=== PATIENT | female | born 1980 | race African-American/Black ===

== ENCOUNTER 2021-09-11 21:53 | Emergency (ER) | payer OTHER ==
[~2021-09-11] VITALS: Ht 160 cm; Wt 77.1 kg
[2021-09-12] MEDS ORDERED: KETO10TA2 PO (04:11)
== END 2021-09-12 04:50 ==
LOC: ER 21:53
DX: N83.291 Other ovarian cyst, right side (principal); N20.0 Calculus of kidney

== ENCOUNTER 2025-02-23 11:33 | Inpatient (IN) | payer OTHER ==
[~2025-02-23] VITALS: Ht 160 cm; Wt 70.3 kg
[~2025-02-23 11:33] MED LIST: KETO10TA2 PO
[2025-02-23] MEDS ORDERED: 0.9 % SODIUM CHLORIDE 1,000 ML IV ONE (12:00)
[2025-02-23] MEDS ORDERED: TAMSULOSIN HCL 0.4 MG CAP PO ONE (12:00)
[2025-02-23] MEDS ORDERED: FAMOtidine 10 MG/ML (4ML VIAL) IV ONE (12:00)
[2025-02-23] MEDS ORDERED: CEFTRIAXONE SODIUM 1,000 MG VIAL IV ONE (12:00)
[2025-02-23] MEDS ORDERED: KETOROLAC TROMETHAMINE 30 MG VIAL IV ONE (12:00)
[2025-02-23 13:31] LABS: BASO % 0.2 % (0.1-1.2); EOS # 0.00 (0.04-0.54); EOS % 0.0 % (0.7-7.0); LYMPH # 1.15 (1.18-3.74); LYMPH % 8.7 % (19.3-53.1); MEAN PLATELET VOLUME 9.70 fl (9.4-12.4); MONO # 0.66 (0.24-0.82); MONO % 5.0 % (4.7-12.5); NEUT # 11.36 (1.56-6.13); NEUT % 85.9 % (34.0-71.1); RED CELL DISTRIBUTION WIDTH 12.2 % (11.6-14.4)
[2025-02-23 13:42] LABS: ALT/SGPT 24.0 U/L (12-78); AST/SGOT 19.0 U/L (15-37); BILIRUBIN TOTAL 0.62 mg/dL (0.3-1.2); BUN CREA RATIO 10.0 (7.0-25.0); CREATININE SERUM 0.71 mg/dL (0.55-1.02); GFR 89.02; GLOBULINA 4.0 G/DL (2.4-3.5); GLUCOSE FASTING 92.0 mg/dL (65-100); OSMOLALITY SERUM 270.0 MOSM/KG (275-295)
[2025-02-23 13:43] LABS: INR 1.1
[2025-02-23 16:41] LABS: URINE APPEARANCE Cloudy; URINE BILIRRUBIN Negative (NEGATIVE); URINE BLOOD Moderate; URINE COLOR Yellow; URINE GLUCOSE Negative (NEGATIVE); URINE KETONE Trace (NEGATIVE); URINE LEUKOCYTE Moderate; URINE NITRATE Positive; URINE PROTEIN 30 (NEGATIVE); URINE UROBILINOGEN 1.0 E.U./dl
[2025-02-23 16:44] LABS: URINE EPITHELIAL CELLS 10.1 uL (0.0-38.8); URINE RBC 38.7 uL (0.0-20.8); URINE WBC 559.5 uL (0.0-23.2)
[2025-02-23 16:59] LABS: URINE BACTERIA > 9821.5 uL (0.0-1933); URINE CAST 0.43 uL (0.0-1.40)
[2025-02-23] MEDS ORDERED: CEFTRIAXONE SODIUM 1,000 MG VIAL IV SCH (20:19)
[2025-02-23] MEDS ORDERED: ENOXAPARIN SODIUM 40 MG/0.4 ML SYRINGE SUBCUTANEO SCH (20:21)
[2025-02-23] MEDS ORDERED: ACETAMINOPHEN 325 MG TABLET PO PRN (20:30)
[2025-02-23] MEDS ORDERED: MORPHINE SULFATE 2 MG/ML CARTRIDGE IV PRN (20:30)
[2025-02-23] MEDS ORDERED: 0.9 % SODIUM CHLORIDE 1,000 ML IV SCH (20:30)
[2025-02-23] MEDS ORDERED: ONDANSETRON HCL 4 MG in 0.9 % SODIUM CHLORIDE 50 ML IV PRN (20:45)
[2025-02-23 22:31] VITALS: BP 107/73
[2025-02-24 05:39] VITALS: BP 104/64
[2025-02-24 09:10] VITALS: BP 115/60
[2025-02-25 02:02] VITALS: BP 96/65; O2SAT 98
[2025-02-25 08:38] VITALS: BP 102/69; O2SAT 98
[2025-02-25 18:17] VITALS: BP 105/73; O2SAT 99
[2025-02-26 02:11] VITALS: BP 110/71; O2SAT 100
[2025-02-26 08:00] VITALS: BP 96/65; O2SAT 98
== END 2025-02-26 09:40 | disposition home or self-care (01) | DRG 690 ==
LOC: ER 11:33 → MEDJ 20:41
PROVIDERS: General Practice; ADMIT Internal Medicine; ATTEND Internal Medicine
PROC: BW21ZZZ Computerized Tomography (CT Scan) of Abdomen and Pelvis (ICD-10-PCS; principal; 2025-02-23)
DX: N39.0 Urinary tract infection, site not specified (principal); N20.0 Calculus of kidney; K80.20 Calculus of gallbladder without cholecystitis without obstruction; B96.20 Unspecified Escherichia coli [E. coli] as the cause of diseases classified elsewhere; D72.829 Elevated white blood cell count, unspecified

== ENCOUNTER 2025-04-02 08:00 | Day surgery (SDC) | payer OTHER ==
[2025-03-27 12:47] LABS: URINE APPEARANCE Clear; URINE BACTERIA 189.5 uL (0.0-1933); URINE BILIRRUBIN Negative (NEGATIVE); URINE BLOOD NHT; URINE COLOR Yellow; URINE EPITHELIAL CELLS 12.4 uL (0.0-38.8); URINE GLUCOSE Negative (NEGATIVE); URINE KETONE Negative (NEGATIVE); URINE LEUKOCYTE Negative; URINE NITRATE Negative; URINE PROTEIN Negative (NEGATIVE); URINE RBC 15.5 uL (0.0-20.8); URINE UROBILINOGEN 0.2 E.U./dl; URINE WBC 5.6 uL (0.0-23.2)
[2025-03-27 12:48] LABS: URINE CAST 0.00 uL (0.0-1.40)
[2025-03-27 13:10] LABS: ALT/SGPT 18.0 U/L (12-78); AST/SGOT 13.0 U/L (15-37); BILIRUBIN TOTAL 0.55 mg/dL (0.3-1.2); BUN CREA RATIO 13.0 (7.0-25.0); CREATININE SERUM 0.55 mg/dL (0.55-1.02); GFR 119.53; GLOBULINA 3.3 G/DL (2.4-3.5); GLUCOSE FASTING 87.0 mg/dL (65-100); OSMOLALITY SERUM 279.0 MOSM/KG (275-295)
[2025-03-27 13:37] LABS: BASO % 0.3 % (0.1-1.2); EOS # 0.12 (0.04-0.54); EOS % 1.8 % (0.7-7.0); LYMPH # 2.01 (1.18-3.74); LYMPH % 30.7 % (19.3-53.1); MEAN PLATELET VOLUME 9.90 fl (9.4-12.4); MONO # 0.36 (0.24-0.82); MONO % 5.5 % (4.7-12.5); NEUT # 4.01 (1.56-6.13); NEUT % 61.4 % (34.0-71.1); RED CELL DISTRIBUTION WIDTH 13.7 % (11.6-14.4)
[2025-03-27 13:44] LABS: INR 0.99
[2025-03-27 16:03] VITALS: BP 110/76
[~2025-04-02] VITALS: Ht 160 cm; Wt 68.9 kg
[~2025-04-02 08:00] MED LIST changes: +METHIMAZOLE10 MG PO
[2025-04-02] MEDS ORDERED: CEFAZOLIN SODIUM 1,000 MG VIAL ONE (08:56)
[2025-04-02] MEDS ORDERED: LIDOCAINE HCL 1%/EPINEPHRINE 10 ML VIAL IJ ONE (10:54)
[2025-04-02] MEDS ORDERED: BUPIVACAINE HCL/MPF 0.5% 30ML VIAL ONE (10:54)
[2025-04-02] MEDS ORDERED: SUGAMMADEX SODIUM 200 MG/2 ML VIAL IV ONE (12:20)
== END 2025-04-02 15:05 | disposition home or self-care (01) ==
LOC: CIR.AMB 08:00
PROVIDERS: ATTEND Student in an Organized Health Care Education/Training Program
DX: K80.10 Calculus of gallbladder with chronic cholecystitis without obstruction (principal)